=== PATIENT | female | born 1985 | race Caucasian/White ===

== ENCOUNTER 2016-09-14 00:55 | Emergency (ER) | payer OTHER ==
[2016-09-14] MEDS ORDERED: methylPREDNISolone SOD SUCCI 125 MG/2 ML VIAL IM ONE (01:51)
[2016-09-14] MEDS ORDERED: FAMOTIDINE 20 MG TAB PO STA (01:57)
--- NOTE | 2016-09-14 01:59 | ED ---
Allergic Reaction HPI - General Chief complaint: Allergic Reaction Stated complaint: allergic rx Time Seen by Provider: 09/14/16 01:06 Source: patient, RN notes reviewed Mode of arrival: ambulatory Limitations: no limitations - Related Data Home Medications Medication Instructions Recorded Confirmed Aspirin/Acetaminophen/Caffeine 1 each PO DAILY 09/14/16 09/14/16 [Excedrin Migraine Caplet] Cetirizine HCl [Zyrtec] 10 mg PO DAILY 09/14/16 09/14/16 Estrogen,Con/M-Progest Acet 1 each PO DAILY 09/14/16 09/14/16 [Prempro 0.3 mg-1.5 mg Tablet] buPROPion XL [Wellbutrin Xl] 150 mg PO DAILY 09/14/16 09/14/16 methylPREDNISolone [Medrol Dose 1 dose PO DIRECTED 09/14/16 09/14/16 Pack] Previous Rx's Medication Instructions Recorded EPINEPHrine (Auto Inject) [Epipen] 0.3 mg IM ONCE PRN #2 syringe 09/14/16 Famotidine [Pepcid] 20 mg PO BID #20 tablet 09/14/16 predniSONE 20 mg PO BID #8 tab 09/14/16 Allergies Allergy/AdvReac Type Severity Reaction Status Date / Time garlic AdvReac Unknown Verified 09/14/16 01:36 gluten AdvReac Nausea & Verified 09/14/16 01:37 Vomiting & Diarrhea lactose AdvReac Nausea & Verified 09/14/16 01:37 Vomiting & Diarrhea Review of Systems ROS Statement: Those systems with pertinent positive or pertinent negative responses have been documented in the HPI. ROS Other: All systems not noted in ROS Statement are negative. Past Medical History Additional Past Medical History / Comment(s): seasonal allergies, anxiety, endomitriosis, migranes History of Any Multi-Drug Resistant Organisms: None Reported Past Surgical History: Ablation, Hysterectomy, Orthopedic Surgery Additional Past Surgical History / Comment(s): left fib plate Past Psychological History: Anxiety Smoking Status: Never smoker Past Alcohol Use History: None Reported Past Drug Use History: None Reported General Exam Limitations: no limitations Course Vital Signs 09/14/16 01:00 Temperature 98.3 F Pulse Rate 72 Respiratory 18 Rate Blood Pressure 114/80 O2 Sat by Pulse 100 Oximetry Disposition Clinical Impression: Allergic reaction Disposition: HOME SELF-CARE Condition: Good Instructions: Anaphylaxis (ED) Additional Instructions: Patient advised to continueBenadryl every 4-6 hours. Take the following prescriptions for the next 4 days. Patient also is carry EpiPen on with her at all times. Follow-up with your primary care provider and recovery specialist within the next week. Prescriptions: EPINEPHrine (Auto Inject) [Epipen] 0.3 mg IM ONCE PRN #2 syringe PRN Reason: Anaphylaxis Famotidine [Pepcid] 20 mg PO BID #20 tablet predniSONE 20 mg PO BID #8 tab Referrals: Rosamaria Natarajan MD [Primary Care Provider] - 1-2 days Time of Disposition: 01:57
[2016-09-14 02:18] VITALS: BP 109/71; PULSE 61; RESP 16; TEMP 97.6
== END 2016-09-14 02:18 | disposition home or self-care (01) ==
LOC: EC 00:55
DX: T78.40XA Allergy, unspecified, initial encounter (principal); F41.9 Anxiety disorder, unspecified; Z79.3 Long term (current) use of hormonal contraceptives; Z79.52 Long term (current) use of systemic steroids; Z79.82 Long term (current) use of aspirin; Z79.899 Other long term (current) drug therapy; Z91.018 Allergy to other foods
CPT/HCPCS: 99283; 96372; J2930

== ENCOUNTER 2016-10-30 19:13 | Emergency (ER) | payer OTHER ==
[2016-10-30] MEDS ORDERED: FAMOTIDINE 20 MG TAB PO STA (19:54)
[2016-10-30] MEDS ORDERED: DEXAMETHASONE SOD PHOSPHATE 10 MG/ML 1 ML VIAL IM STA (19:56)
--- NOTE | 2016-10-30 19:58 | ED ---
General Adult HPI - General Chief complaint: Allergic Reaction Stated complaint: throat swelling-used epipen Time Seen by Provider: 10/30/16 19:32 Source: patient, RN notes reviewed, old records reviewed Mode of arrival: wheelchair Limitations: no limitations - History of Present Illness Initial comments: This is a 31-year-old female here for aortic reaction. Patient is doing with ALLERGIC reactions for a few days now severely worse today. With throat swelling. Patient did take her EpiPen today secondary to swelling. This time patient states symptoms are resolved and she has no complaints, patient is unsure what exporter may be too. Denies any other issues. No shortness of breath. Denies any swelling at this time - Related Data Home Medications Medication Instructions Recorded Confirmed Aspirin/Acetaminophen/Caffeine 1 each PO DAILY 09/14/16 10/30/16 [Excedrin Migraine Caplet] Cetirizine HCl [Zyrtec] 10 mg PO DAILY 09/14/16 10/30/16 Estrogen,Con/M-Progest Acet 1 each PO DAILY 09/14/16 10/30/16 [Prempro 0.3 mg-1.5 mg Tablet] buPROPion XL [Wellbutrin Xl] 150 mg PO DAILY 09/14/16 10/30/16 methylPREDNISolone [Medrol Dose 1 dose PO DIRECTED 09/14/16 10/30/16 Pack] Previous Rx's Medication Instructions Recorded EPINEPHrine (Auto Inject) [Epipen] 0.3 mg IM ONCE PRN #2 syringe 09/14/16 Famotidine [Pepcid] 20 mg PO BID #20 tablet 09/14/16 predniSONE 20 mg PO BID #8 tab 09/14/16 EPINEPHrine (Auto Inject) [Epipen] 0.3 mg IM ONCE PRN #1 syringe 10/30/16 Famotidine [Pepcid] 40 mg PO BID #30 tab 10/30/16 hydrOXYzine HCL [Atarax] 25 mg PO TID PRN #30 tab 10/30/16 predniSONE 50 mg PO DAILY #5 tab 10/30/16 Allergies Allergy/AdvReac Type Severity Reaction Status Date / Time peanut Allergy Anaphylaxis Verified 10/30/16 19:31 garlic AdvReac Unknown Verified 10/30/16 19:30 gluten AdvReac Nausea & Verified 10/30/16 19:30 Vomiting & Diarrhea lactose AdvReac Nausea & Verified 10/30/16 19:30 Vomiting & Diarrhea Review of Systems ROS Statement: Those systems with pertinent positive or pertinent negative responses have been documented in the HPI. ROS Other: All systems not noted in ROS Statement are negative. Past Medical History Past Medical History: No Reported History Additional Past Medical History / Comment(s): seasonal allergies, anxiety, endomitriosis, migranes History of Any Multi-Drug Resistant Organisms: None Reported Past Surgical History: Ablation, Hysterectomy, Orthopedic Surgery Additional Past Surgical History / Comment(s): left fib plate Past Psychological History: Anxiety Smoking Status: Never smoker Past Alcohol Use History: None Reported Past Drug Use History: None Reported General Exam Limitations: no limitations General appearance: alert, in no apparent distress Head exam: Present: atraumatic, normocephalic, normal inspection Eye exam: Present: normal appearance, PERRL, EOMI. Absent: scleral icterus, conjunctival injection, periorbital swelling ENT exam: Present: normal exam, mucous membranes moist Neck exam: Present: normal inspection. Absent: tenderness, meningismus, lymphadenopathy Respiratory exam: Present: normal lung sounds bilaterally. Absent: respiratory distress, wheezes, rales, rhonchi, stridor Cardiovascular Exam: Present: regular rate, normal rhythm, normal heart sounds. Absent: systolic murmur, diastolic murmur, rubs, gallop, clicks GI/Abdominal exam: Present: soft, normal bowel sounds. Absent: distended, tenderness, guarding, rebound, rigid Extremities exam: Present: normal inspection, full ROM, normal capillary refill. Absent: tenderness, pedal edema, joint swelling, calf tenderness Back exam: Present: normal inspection Neurological exam: Present: alert, oriented X3, CN II-XII intact Psychiatric exam: Present: normal affect, normal mood Skin exam: Present: warm, dry, intact, normal color. Absent: rash Course Vital Signs 10/30/16 10/30/16 19:27 20:34 Temperature 100.1 F H 98 F Pulse Rate 83 78 Respiratory 16 20 Rate Blood Pressure 117/75 108/78 O2 Sat by Pulse 100 98 Oximetry - Reevaluation(s) Reevaluation #1: Patient remains symptomatic, no stridor no wheezing Medical Decision Making - Medical Decision Making 31 female here with ALLERGIC reaction, at this time patient will be discharged to continue expectant management for ALLERGIC reaction Disposition Clinical Impression: Allergic reaction, Anaphylaxis, Adverse reaction to drug Disposition: HOME SELF-CARE Condition: Good Instructions: Anaphylaxis (ED) Prescriptions: EPINEPHrine (Auto Inject) [Epipen] 0.3 mg IM ONCE PRN #1 syringe PRN Reason: Anaphylaxis Famotidine [Pepcid] 40 mg PO BID #30 tab hydrOXYzine HCL [Atarax] 25 mg PO TID PRN #30 tab PRN Reason: Allergy Symptoms predniSONE 50 mg PO DAILY #5 tab Referrals: Rosamaria Natarajan MD [Primary Care Provider] - 1-2 days
[2016-10-30 20:34] VITALS: BP 108/78; PULSE 78; RESP 20; TEMP 98
== END 2016-10-30 20:35 | disposition home or self-care (01) ==
LOC: EC 19:13
DX: T45.0X5A Adverse effect of antiallergic and antiemetic drugs, initial encounter (principal); T88.6XXA Anaphylactic reaction due to adverse effect of correct drug or medicament properly administered, initial encounter; J30.2 Other seasonal allergic rhinitis; Z91.010 Allergy to peanuts; Z91.011 Allergy to milk products; Z91.018 Allergy to other foods; Z79.3 Long term (current) use of hormonal contraceptives; Z79.82 Long term (current) use of aspirin; Z79.899 Other long term (current) drug therapy
CPT/HCPCS: 99283; 96372; J1100